=== PATIENT | female | born 1950 | race Caucasian/White ===

== ENCOUNTER 2022-09-07 10:44 | Inpatient (IN) | payer MEDICARE, BC ==
--- NOTE | 2022-09-07 12:28 | ED ---
General Adult HPI - General Chief complaint: Psychiatric Symptoms Stated complaint: mental health issues Time Seen by Provider: 09/07/22 11:59 Source: patient, family, RN notes reviewed, old records reviewed Mode of arrival: ambulatory Limitations: no limitations - History of Present Illness Initial comments: 72 yo female presenting for psychiatric evaluation. Patient has had increasing depression and thoughts of suicide over the past several months. She's been seen by her primary care physician. She's had medication adjustments. She had spoken with her counselor or therapist yesterday. She denies suicide attempt. Denies physical complaint. - Related Data Allergies Allergy/AdvReac Type Severity Reaction Status Date / Time codeine AdvReac Nausea & Verified 09/07/22 14:35 Vomiting Review of Systems ROS Statement: Those systems with pertinent positive or pertinent negative responses have been documented in the HPI. ROS Other: All systems not noted in ROS Statement are negative. Past Medical History Past Medical History: No Reported History History of Any Multi-Drug Resistant Organisms: None Reported Past Surgical History: Section, Hysterectomy, Joint Replacement Additional Past Surgical History / Comment(s): rt knee, lt knee Past Psychological History: Anxiety, Depression Smoking Status: Former smoker Past Alcohol Use History: None Reported Past Drug Use History: None Reported General Exam Limitations: no limitations General appearance: alert, in no apparent distress Head exam: Present: atraumatic, normocephalic Eye exam: Present: normal appearance, PERRL ENT exam: Present: normal exam Neck exam: Present: normal inspection. Absent: tenderness, meningismus Respiratory exam: Present: normal lung sounds bilaterally. Absent: respiratory distress, wheezes Cardiovascular Exam: Present: regular rate, normal rhythm GI/Abdominal exam: Present: soft. Absent: distended, tenderness, guarding Extremities exam: Present: normal inspection, normal capillary refill. Absent: pedal edema Neurological exam: Present: alert, oriented X3, CN II-XII intact, motor sensory deficit Psychiatric exam: Present: depressed, suicidal ideation Skin exam: Present: warm, dry, intact. Absent: cyanosis Course Vital Signs 09/07/22 11:26 Temperature 98.6 F Pulse Rate 76 Respiratory 20 Rate Blood Pressure 117/79 O2 Sat by Pulse 95 Oximetry Medical Decision Making - Medical Decision Making Was pt. sent in by a medical professional or institution (, PA, INTERMODAL OWNER OPERATOR TRUCK DRIVER, urgent care, hospital, or group home...) When possible be specific @ -No Did you speak to anyone other than the patient for history (EMS, parent, family, police, friend...)? What history was obtained from this source @ -No Did you review nursing and triage notes (agree or disagree)? Why? @ -I reviewed and agree with nursing and triage notes Were old charts reviewed (outside hosp., previous admission, EMS record, old EKG, old radiological studies, urgent care reports/EKG's, group home records)? Report findings @ -No old charts were reviewed Differential Diagnosis (chest pain, altered mental status, abdominal pain women, abdominal pain men, vaginal bleeding, weakness, fever, dyspnea, syncope, h eadache, dizziness, GI bleed, back pain, seizure, CVA, palpatations, mental health, musculoskeletal)? @ -Differential Mental Health Depression, anxiety, bipolar, psychosis, schizophrenia, borderline personality, situational depression, adjustment disorder, behavioral disorder, brain tumor, malingering, substance abuse, encephalopathy, medication reaction, dementia, hypothyroidism, degenerative neurologic disorder, lupus.... This is not meant to be all-inclusive list EKG interpreted by me (3pts min.). @ -As above X-rays interpreted by me (1pt min.). @ -None done CT interpreted by me (1pt min.). @ -None done U/S interpreted by me (1pt. min.). @ -None done What testing was considered but not performed or refused? (CT, X-rays, U/S, labs)? Why? @ -None What meds were considered but not given or refused? Why? @ -None Did you discuss the management of the patient with other professionals (professionals i.e. , PA, INTERMODAL OWNER OPERATOR TRUCK DRIVER, lab, RT, psych nurse, vp digital marketing social media and crm, chief pharmacist, teacher, sanitation officer, major case detective)? Give summary @ -Is discussed with the EPS nurse Was smoking cessation discussed for >3mins.? @ -No Was critical care preformed (if so, how long)? @ -No Were there social determinants of health that impacted care today? How? (Homelessness, low income, unemployed, alcoholism, drug addiction, transportation, low edu. Level, literacy, decrease access to med. care, long term, rehab)? @ -No Was there de-escalation of care discussed even if they declined (Discuss DNR or withdrawal of care, Hospice)? DNR status @ -No What co-morbidities impacted this encounter? (DM, HTN, Smoking, COPD, CAD, Cancer, CVA, ARF, Chemo, Hep., AIDS, mental health diagnosis, sleep apnea, morbid obesity)? @ -None Was patient admitted / discharged? Hospital course, mention meds given and route, prescriptions, significant lab abnormalities, going to OR and other pertinent info. @ -Patient has been medically cleared and evaluated by EPS and will be admitted for further psychiatric evaluation and treatment Undiagnosed new problem with uncertain prognosis? @ -No Drug Therapy requiring intensive monitoring for toxicity (Heparin, Nitro, Insulin, Cardizem)? @ -No Were any procedures done? @ -No Diagnosis/symptom? @ -Depression and suicidal ideation Acute, or Chronic, or Acute on Chronic? @ -Acute Uncomplicated (without systemic symptoms) or Complicated (systemic symptoms)? @ -[Uncomplicated Side effects of treatment? @ -No Exacerbation, Progression, or Severe Exacerbation? @ -No Poses a threat to life or bodily function? How? (Chest pain, [place], [place], pneumonia, PE, COPD, DKA, ARF, appy, cholecystitis, CVA, Diverticulitis, Homicidal, Suicidal, threat to staff... and all critical care pts) @ -Risk of self-harm - Lab Data Lab Results 09/07/22 Range/Units 14:04 Urine Color Light Yellow Urine Appearance Clear (Clear) Urine pH 5.5 (5.0-8.0) Ur Specific [place] 1.008 (1.001-1.035) Urine Protein Negative (Negative) Urine Glucose (UA) Negative (Negative) Urine Ketones Negative (Negative) Urine Blood Negative (Negative) Urine Nitrite Negative (Negative) Urine Bilirubin Negative (Negative) Urine Urobilinogen <2.0 (<2.0) mg/dL Ur Leukocyte Esterase Negative (Negative) Disposition Clinical Impression: Depression, Suicidal ideation Disposition: ADMITTED IP TO THIS HOSP Condition: Stable Is patient prescribed a controlled substance at d/c from ED?: No Referrals: Silvestre Edwards MD [Primary Care Provider] - 1-2 days Time of Disposition: 14:42
[2022-09-07 14:24] LABS: Appearance,Urine Clear (Clear); Bilirubin,Urine Negative (Negative); Blood,Urine Negative (Negative); Color,Urine Light Yellow; Glucose,Urine (UA) Negative (Negative); Ketones,Urine Negative (Negative); Leukocyte Esterase,Urine Negative (Negative); Nitrite,Urine Negative (Negative); PH, Urine 5.5 (5.0-8.0); Protein,Urine Negative (Negative); Specific Gravity,Urine 1.008 (1.001-1.035); Urobilinogen,Urine <2.0 mg/dL (<2.0)
[2022-09-07 14:40] LABS: Amphetamine Screen,Urine Not Detected (NotDetected); Barbiturate Screen,Urine Not Detected (NotDetected); Benzodiazepines Screen,Urine Detected (NotDetected); Cocaine Screen,Urine Not Detected (NotDetected); Methadone Screen, Urine Not Detected (NotDetected); Opiate Screen,Urine Not Detected (NotDetected); Oxycodone Screen, Urine Not Detected (NotDetected); Phencyclidine Screen,Urine Not Detected (NotDetected); Tricyclic Antidepressant,Urine Not Detected (NotDetected); Urn Cannabinoid Scrn Not Detected (NotDetected)
[2022-09-07] MEDS ORDERED: MAG HYDROX/AL HYDROX/SIMETH 30 ML CUP PO PRN (17:15)
[2022-09-07] MEDS ORDERED: MAGNESIUM HYDROXIDE 2,400 MG/10 ML CUP PO PRN (17:15)
[2022-09-07] MEDS ORDERED: LORazepam 2 MG/ML INJ IM PRN (17:17)
[2022-09-07] MEDS: ATORVASTATIN 10 MG TAB PO SCH (20:28)
[2022-09-07] MEDS: LORazepam 1 MG TAB PO PRN (20:29)
[2022-09-07] MEDS: APIXABAN 5 MG TAB PO SCH (20:35)
[2022-09-08] MEDS: lisinopriL 20 MG TAB PO SCH (08:31)
[2022-09-08] MEDS: amLODIPine 5 MG TAB PO SCH (08:31)
[2022-09-08] MEDS: LORazepam 1 MG TAB PO PRN ×2 (08:31→16:04)
[2022-09-08] MEDS: METOPROLOL SUCCINATE (ER) 25 MG TAB.ER.24H PO SCH (08:32)
[2022-09-08] MEDS: ESCITALOPRAM 10 MG TAB PO SCH (08:32)
[2022-09-08] MEDS: APIXABAN 5 MG TAB PO SCH ×2 (08:32→19:59)
[2022-09-08 08:40] LABS: Basophils % (A) 0 %; Eosinophils % (A) 1 %; HCT 43.2 % (34.0-46.0); HGB 14.3 gm/dL (11.4-16.0); Lymphocytes # (A) 1.8 k/uL (1.0-4.8); Lymphocytes % (A) 23 %; MCH 29.1 pg (25.0-35.0); MCHC 33.1 g/dL (31.0-37.0); MCV 88.1 fL (80.0-100.0); Mean Platelet Volume 7.4; Monocytes # (A) 0.4 k/uL (0-1.0); Monocytes % (A) 5 %; Neutrophils # (A) 5.4 k/uL (1.3-7.7); Neutrophils % (A) 70 %; Platelet Count 363 k/uL (150-450); RDW 13.6 % (11.5-15.5); WBC 7.8 k/uL (3.8-10.6)
[2022-09-08] MEDS ORDERED: BREXPIPRAZOLE 3 MG PO SCH (09:00)
[2022-09-08] MEDS ORDERED: FLUoxetine HCL 20 MG CAP PO SCH (09:00)
[2022-09-08 09:01] LABS: ALT 23 U/L (4-34); AST 22 U/L (14-36); African American GFR (CKD) 69 (>60 ml/min/1.73 sqM); Alkaline Phosphatase 105 U/L (38-126); Anion Gap 11 mmol/L; Blood Urea Nitrogen 12 mg/dL (7-17); Calcium 9.9 mg/dL (8.4-10.2); Carbon Dioxide 25 mmol/L (22-30); Chloride 105 mmol/L (98-107); Glucose 119 mg/dL (74-99); Non-African American GFR(CKD) 60 (>60 ml/min/1.73 sqM); Potassium 4.2 mmol/L (3.5-5.1); Sodium 141 mmol/L (137-145); Total Bilirubin 0.8 mg/dL (0.2-1.3); Total Protein 6.8 g/dL (6.3-8.2)
[2022-09-08] MEDS ORDERED: buPROPion SR 100 MG TABLET.ER PO STA (10:37)
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
[2022-09-08 17:26] LABS: Chol/HDL Ratio 2.68 Ratio; LDL Cholesterol,Calculated 110.2 mg/dL (0.0-131.0)
[2022-09-08] MEDS: ATORVASTATIN 10 MG TAB PO SCH (19:59)
[2022-09-08] MEDS: traZODone HCL 50 MG TAB PO PRN (19:59)
--- NOTE | 2022-09-09 04:00 | P.MDCNMH ---
History of Present Illness H&P Date: 09/08/22 Chief Complaint: medical evaluation 72 year old female with afib on eliquis patient coming in for psych evaluation due to depression and suicidal ideation , deneis any visual or auditory hallucinations she also reports compliance with her meds for medical issues , she denies any chest pain palpitations, nausea , vomiting, chest pain , trouble breathing , cough denies tobacco smoking, illicit drugs or alcohol Review of Systems Pertinent positives as noted in HPI. All other systems were reviewed and are negative Past Medical History Past Medical History: No Reported History History of Any Multi-Drug Resistant Organisms: None Reported Past Surgical History: Section, Hysterectomy, Joint Replacement Additional Past Surgical History / Comment(s): rt knee, lt knee Past Psychological History: Anxiety, Depression Smoking Status: Never smoker Past Alcohol Use History: None Reported Past Drug Use History: None Reported Medications and Allergies Home Medications Medication Instructions Recorded Confirmed Type Apixaban [Eliquis] 5 mg PO BID 09/07/22 09/07/22 History Atorvastatin [Lipitor] 10 mg PO HS 09/07/22 09/07/22 History Brexpiprazole [Rexulti] 3 mg PO DAILY 09/07/22 09/07/22 History Escitalopram [Lexapro] 10 mg PO DAILY 09/07/22 09/07/22 History FLUoxetine HCL [PROzac] See Taper PO DAILY 09/07/22 09/07/22 History LORazepam [Ativan] 1 mg PO TID PRN 09/07/22 09/07/22 History Metoprolol Succinate (ER) [Toprol 25 mg PO DAILY 09/07/22 09/07/22 History Xl] amLODIPine [Norvasc] 5 mg PO DAILY 09/07/22 09/07/22 History lisinopriL 40 mg PO DAILY 09/07/22 09/07/22 History Allergies Allergy/AdvReac Type Severity Reaction Status Date / Time codeine AdvReac Nausea & Verified 09/07/22 14:35 Vomiting Physical Exam Vitals: Vital Signs Temp Pulse Resp BP 09/08/22 06:57 98 F 75 16 138/69 Constitutional: No acute distress, Eyes: Anicteric sclerae, moist conjunctiva, Pupils equal round reactive to light ENMT: NC/AT Oropharynx clear, no erythema, or exudates Neck: Supple, no masses, or JVD No carotid bruits No thyromegaly Lungs: Clear to auscultation Clear to percussion Normal respiratory effort, no accessory muscle use Cardiovascular: Heart regular in rate and rhythm, No murmurs, gallops, or rubs No peripheral edema Abdominal: Soft Nontender, no guarding, rebound or rigidity Abdomen moving with respiration Normoactive bowel sounds No hepatomegaly, No splenomegaly No palpable mass No abdominal wall hernia noted Skin: Normal temperature, tone, texture, turgor Extremities: No digital cyanosis No clubbing Pedal pulses intact and symmetrical Radial pulses intact and symmetrical No calf tenderness Psychiatric: Alert and oriented to person, place and time Neuro Muscles Strength 5/5 in all 4 extremities Sensation to light touch grossly present throughout Cranial nerves II-XII grossly intact Lymphatics: no palpable cervical or supraclavicular lymph nodes Cranial Nerve Examination - Cranial Nerves Cranial Nerve II- Optic: Intact Cranial Nerve III- Oculomotor: Intact Cranial Nerve IV- Trochlear: Intact Cranial Nerve V- Trigeminal: Intact Cranial Nerve - Abducens: Intact Cranial Nerve VII- Facial: Intact Cranial Nerve VIII- Auditory: Intact Cranial Nerve IX- Glossopharyngeal: Intact Cranial Nerve X- Vagus: Intact Cranial Nerve XI- Accessory: Intact Cranial Nerve XII- Hypoglossal: Intact Results CBC & Chem 7: 09/08/22 07:56 09/08/22 07:56 Labs: Abnormal Lab Results - Last 24 Hours (Table) 09/08/22 Range/Units 07:56 Glucose 119 H (74-99) mg/dL Cholesterol 207.00 H (0.00-200.00) mg/dL HDL Cholesterol 77.20 H (40.00-60.00) mg/dL Vitamin B12 2319.0 H (200.0-944.0) pg/mL Assessment and Plan Assessment: depression adn suicidal ideation management per psych afib on eliquis resume blood thinners resume metoprolol 100 mg po daily hypertension , CAD resume atorvastatin 10 mg po qhs amlodipine 5 mg po daily l;isinopril 40 mg po daily blood work reviewed CBC and renal function unremarkable thank you for this consultation
[2022-09-09] MEDS: METOPROLOL SUCCINATE (ER) 25 MG TAB.ER.24H PO SCH (07:46)
[2022-09-09] MEDS: buPROPion SR 150 MG TABLET.ER PO SCH (07:46)
[2022-09-09] MEDS: APIXABAN 5 MG TAB PO SCH ×2 (07:46→20:03)
[2022-09-09] MEDS: lisinopriL 20 MG TAB PO SCH (07:46)
[2022-09-09] MEDS: ESCITALOPRAM 10 MG TAB PO SCH (07:46)
[2022-09-09] MEDS: amLODIPine 5 MG TAB PO SCH (07:46)
[2022-09-09] MEDS: ACETAMINOPHEN TAB 325 MG TAB PO PRN ×2 (08:41→17:23)
--- NOTE | 2022-09-09 11:55 | P.PN ---
Progress Note - Text Progress Note Date: 09/09/22 Interval History: Patient was seen resting in bed and was directable and agreeable to speak with check writer salesperson in the office. She currently rates her depression 7 out of 10 in severity with 10 being very severe. She continues to report an overall low mood however states that she appears to have a little bit more energy today. She states that she has been engaging in individual and milieu activities and that this has been distracting her from experiencing any suicidal ideation. She continues to remain future and goal oriented. She expresses excitement with the prospect of going to [facility] [facility] upon discharge. She reports no auditory or visual hallucinations. She denies any paranoia or other delusions. She reports no medical issues or concerns to this provider and denies any chest pain, shortness of breath, palpitations, or any other problems at this time. She has been adherent with her medications and is not endorsing any significant side effects. Mental Status Exam: General Appearance: Patient appears to be stated age is alert, directable, and cooperative. Behavior: Patient is calmly seated without any agitated behavior. Speech: Patient's speech is fluent and nonpressured. Mood/Affect: Mood is improving mildly, affect is congruent and constricted. Suicidality/Homicidality: Patient denies having any suicidal or homicidal ideation intent or plan. Perceptions: Patient denies any visual hallucinations and denies any auditory hallucinations Though content/process: There is no evidence of any delusional thought content and thought process is linear and goal-directed. Memory and concentration: AOX3, grossly intact for the purposes of this session Judgment and insight: Improving mildly Vital Signs Temp 98.0 F 09/09/22 06:53 Pulse 91 09/09/22 07:48 Resp 20 09/09/22 07:48 BP 110/71 09/09/22 07:48 Pulse Ox 98 09/07/22 17:52 FiO2 Laboratory Results - Last 24 Hours 09/08/22 09/08/22 09/08/22 07:56 07:56 07:[address] Glu mg/dL 108 Hemoglobin A1c 5.4 Triglycerides 98.00 Cholesterol 207.00 H LDL Cholesterol, Calc 110.2 VLDL Cholesterol, Calc 19.60 HDL Cholesterol 77.20 H Cholesterol/HDL Ratio 2.68 Vitamin B12 2319.0 H Folate 9.30 Assessment Major depressive disorder, recurrent, severe Plan: -Patient continues to meet criteria for inpatient psychiatric admission for symptom stabilization and safety. Patient has signed adult voluntary form and medication consent and was placed in patient's chart. -Medications: Wellbutrin 150 mg by mouth daily for depression Lexapro 10 mg by mouth daily for depression Trazodone 50 mg daily at bedtime when necessary for insomnia -When necessary Ativa for agitation/aggression. -SW on board for discharge planning. Encouraged the patient to participate in milieu.
[2022-09-09] MEDS: traZODone HCL 50 MG TAB PO PRN (20:03)
[2022-09-09] MEDS: ATORVASTATIN 10 MG TAB PO SCH (20:03)
[2022-09-09] MEDS: LORazepam 1 MG TAB PO PRN (21:18)
[2022-09-10 06:20] VITALS: BP 130/82; PULSE 71; RESP 14; TEMP 97.1
[2022-09-10] MEDS: lisinopriL 20 MG TAB PO SCH (08:25)
[2022-09-10] MEDS: buPROPion SR 150 MG TABLET.ER PO SCH (08:25)
[2022-09-10] MEDS: METOPROLOL SUCCINATE (ER) 25 MG TAB.ER.24H PO SCH (08:25)
[2022-09-10] MEDS: amLODIPine 5 MG TAB PO SCH (08:26)
[2022-09-10] MEDS: APIXABAN 5 MG TAB PO SCH (08:26)
[2022-09-10] MEDS: ESCITALOPRAM 10 MG TAB PO SCH (08:26)
[2022-09-10] MEDS: ACETAMINOPHEN TAB 325 MG TAB PO PRN (08:36)
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
== END 2022-09-10 11:20 | disposition home or self-care (01) | DRG 885 ==
LOC: EC 10:44 → 3MHU 16:58
PROVIDERS: ADMIT Psychiatry & Neurology Psychiatry; ATTEND Psychiatry & Neurology Psychiatry
DX: F33.2 Major depressive disorder, recurrent severe without psychotic features (principal); R45.851 Suicidal ideations; I25.10 Atherosclerotic heart disease of native coronary artery without angina pectoris; G47.00 Insomnia, unspecified; I10 Essential (primary) hypertension; F41.9 Anxiety disorder, unspecified; F43.10 Post-traumatic stress disorder, unspecified; Z91.51 Personal history of suicidal behavior; Z87.891 Personal history of nicotine dependence; Z79.899 Other long term (current) drug therapy; Z71.89 Other specified counseling; Z62.810 Personal history of physical and sexual abuse in childhood; Z96.651 Presence of right artificial knee joint; Z88.5 Allergy status to narcotic agent; Z20.822 Contact with and (suspected) exposure to COVID-19; Z28.21 Immunization not carried out because of patient refusal
CPT/HCPCS: 80053; 80061; 80306; 81003; 82075; 82607; 82746; 83036; 84443; 85025; 87635; 99285

== ENCOUNTER → 2023-10-19 | Outpatient (CLI) | payer MEDICARE | END | disposition home or self-care (01) | LOC: LABPAT 14:31 | PROVIDERS: ATTEND Orthopaedic Surgery | DX: Z01.812 Encounter for preprocedural laboratory examination (principal) | CPT/HCPCS: 86850; 86900; 86901 ==

== ENCOUNTER 2023-10-24 10:52 | Observation (INO) | payer MEDICARE ==
[2023-10-19 08:58] VITALS: BMI 36.3
--- NOTE | 2023-10-23 12:16 | HP ---
HISTORY AND PHYSICAL Surgery is scheduled for 10/24/2023. Fiona Romero is a 73-year-old patient, seen with symptomatic left hip osteoarthritis. We discussed options regarding treatment. She elected to proceed with direct anterior left total hip arthroplasty. Consents obtained. Medical clearance by Dr. Edwards. Cardiac clearance by Dr. Quan. PAST MEDICAL HISTORY: Hypertension, hyperlipidemia, cardiovascular disease. PAST SURGICAL HISTORY: Knee arthroscopy, left total knee arthroplasty, hysterectomy, section. DAILY MEDICATIONS: 1. Ativan. 2. Atorvastatin. 3. Lisinopril. 4. Metoprolol. 5. Norvasc. ALLERGIES: Codeine. SOCIAL HISTORY: She denies tobacco use. PHYSICAL EVALUATION OF THE LEFT HIP: There is diffuse tenderness about the hip girdle, limited range of motion with severe pain. Positive hip impingement sign. Straight-leg raise negative. Distal neurovascular exam is intact. IMAGING STUDIES: Radiographs of the left hip revealed severe osteoarthritic changes. IMPRESSION: 1. Left hip osteoarthritis. 2. Hypertension. 3. Hyperlipidemia. PLAN: Direct anterior approach left total hip arthroplasty. The surgery is scheduled for 10/24/2023. MMODL / IJN: [id number] /
[~2023-10-24 10:52] MED LIST: MIDAZOLAM 2 MG/2 ML VIAL IV PRN; TRANEXAMIC 1,000 MG/100ML-NACL 1,000 MG in SALINE 1 100ML.BAG IVPB PRN
[2023-10-24] MEDS: ACETAMINOPHEN TAB 500 MG TAB PO PRN (11:42)
[2023-10-24] MEDS: MELOXICAM 7.5 MG TAB PO PRN (11:42)
[2023-10-24] MEDS: LACTATED RINGERS 1,000 ML IV SCH (11:43)
[2023-10-24] MEDS: MIDAZOLAM 2 MG/2 ML VIAL IVP ONE (11:45)
[2023-10-24] MEDS: DEXAMETHASONE SOD PHOSPHATE 4 MG/ML 1 ML VIAL IV ONE (11:57)
[2023-10-24] MEDS: ONDANSETRON 4 MG/2 ML VIAL IVP ONE (11:57)
[2023-10-24] MEDS ORDERED: KETAMINE HCL IN 0.9 % NACL 50 MG/5 ML SYRINGE ONE (12:38)
[2023-10-24] MEDS ORDERED: HYDROmorphone (PF) 1 MG/ML ONE (12:38)
[2023-10-24] MEDS ORDERED: diphenhydrAMINE 50 MG/ML 1 ML VIAL ONE (12:38)
[2023-10-24] MEDS ORDERED: MIDAZOLAM 2 MG/2 ML VIAL ONE (12:38)
[2023-10-24] MEDS ORDERED: TRANEXAMIC 1,000 MG/100ML-NACL PREMIX BAG ONE (12:38)
[2023-10-24] MEDS ORDERED: ROPIVACAINE 5 MG/ML 30 ML VIAL ONE (12:38)
[2023-10-24] MEDS ORDERED: PROPOFOL 10 MG/ML 20 ML VIAL IV ONE (12:38)
[2023-10-24] MEDS ORDERED: PHENYLEPHRINE-0.9% NACL SYG 1,000 MCG/10 ML SYRINGE ONE (12:38)
[2023-10-24] MEDS ORDERED: LIDOCAINE 1% INJ 10MG/ML (20 ML MDV) ONE (12:38)
[2023-10-24] MEDS: ceFAZolin 1,000 MG in SODIUM CHLORIDE 0.9% 1,000 ML IRRIGATION ONE (12:40)
[2023-10-24] MEDS: LACTATED RINGERS 1,000 ML IV ONE (13:56)
--- NOTE | 2023-10-24 14:29 | P.OP ---
Date of Procedure: 10/24/23 Preoperative Diagnosis: Left hip osteoarthritis Postoperative Diagnosis: Left hip osteoarthritis Procedure(s) Performed: Direct anterior left total hip arthroplasty Implants: 1. DePuy [place] 125 degree standard collared size 13 press-fit femoral stem 2. DePuy [place] 52 mm press-fit acetabular shell 3. DePuy [place] neutral polyethylene acetabular liner 36 mm ID 52 mm OD 4. Biolox delta ceramic femoral head +5 36 mm Anesthesia: regional (Erector spinae block), spinal Surgeon: Stevan Braga Panel Saw Operator #1: Connor Richardson Estimated Blood Loss (ml): 100 Pathology: none sent Condition: stable Disposition: PACU Indications for Procedure: 73-year-old patient seen with symptomatic left hip osteoarthritis. After having treatment options discussed, she elected to proceed with direct anterior left total hip arthroplasty. Operative Findings: See description of procedure Description of Procedure: The patient was taken to the operative suite. Patient underwent a spinal anesthetic by the department of anesthesia. Patient was then transferred to the [facility] table. Patient was given preoperative IV antibiotics and TXA. Both lower extremities were placed in standard leg spars. The hip was then prepped and draped in the normal sterile orthopedic fashion. A standard anterior incision was made beginning 3 cm lateral and 1 cm distal to the ASIS extending 10 cm. Dissection was then carried down through the subcutaneous soft tissues down to the fascia overlying the tensor fascia susan. An incision was now made through the fascia. Careful dissection was taken down exposing the tensor fascia susan muscle. A Cobra retractor was now placed along the medial femoral neck and a second one along the lateral femoral neck. The venous circumflex vessels were now identified, cauterized and clipped. We identified the anterior hip capsule. An incision was made through the hip capsule along the lateral border. I performed a partial anterior capsulectomy. Retractors were now placed around the femoral neck itself. A femoral neck cut was now made with a sagittal saw. It was completed with an osteotome at the lateral neck area. The femoral head was now removed without difficulty. The extremity was now rotated to 60 of external rotation. It was locked in position. Residual labrum was now debrided out. Serial reaming was performed of the acetabulum while Tj BUTCHER assisted holding an anterior retractor for exposure. Once we reached the appropriate size and a trial was position and fit nicely. The appropriate size was now chosen opened and made available. It was introduced into the acetabulum without difficulty. The C-arm/fluoroscopy was now brought into the operative field. We made sure we had a true AP pelvic view. We now under direct C- arm/fluoroscopy introduced into the acetabular component with appropriate version and inclination. I held the cup in appropriate position well Tj BUTCHER used a mallet to seat the acetabular component. I noted the component now to be well seated and stable. Acetabular cup introduce her was removed. The C-arm was pulled back. An appropriate liner was introduced and clicked into position. It was felt to be stable. At this point retractors were removed. The extremity was now placed into 140 external rotation with no traction. The leg was now dropped to the ground and adducted. Appropriate retractors were now positioned along the proximal femur. We also placed our femoral look into position. Additional capsular releasing was performed to gain access to the proximal femur. We now used a box osteotome. A canal finder was now utilized. Serial broaching was now performed with the assistance of Tj BUTCHER tapping the broaches down with a mallet while held the broach in appropriate rotation and position. This was done until we reached the appropriate size with good overall rotational stability. Appropriate calcar planing was performed. A trial head/neck was placed into position. The hip was now reduced. The C- arm/fluoroscopy was brought back into the operative field. I obtained an AP pelvis was demonstrated adequate leg length alignment. The trial components appeared adequately sized and positioned the C-arm/fluoroscopy was pulled back. Retractors were repositioned and the hip was dislocated. The leg was again taken down to the ground and adducted. Appropriate retractors were repositioned as well as the femoral hook. All trial components were removed. The femoral implant was opened along with the femoral head. The femoral implant was introduced on the appropriate handle into our pre-broached area. I held the component position well Tj BUTCHER used a mallet to seat the femoral component. The femoral component was now noted to be well seated and stable.. The femoral head was introduced with good positioning and fixation noted. Retractors were now removed. The hip was now reduced. There appeared be good positioning of the hip confirmed on intraoperative fluoroscopy. Spot films were obtained to document this. A second gram of TXA was given. Bipolar cautery had been utilized intermittently through the procedure for hemostasis. The wound was irrigated copiously with pulse lavage mechanical irrigation. The fascia was repaired with Vicryl suture. The subcutaneous soft tissues were repaired in layers with Vicryl suture. The skin was approximated with pernio/Dermabond. Sterile dressings were applied. Patient was then awakened, transferred to a bed and taken to recovery in stable condition. Tj BUTCHER assisted with the complex procedure.
[2023-10-24] MEDS ORDERED: HYDROcodone/APAP 5-325MG 1 EACH TAB PO PRN (14:30)
[2023-10-24] MEDS ORDERED: NALOXONE 0.4 MG/ML 1 ML VIAL IV PRN (14:30)
[2023-10-24] MEDS ORDERED: HYDROmorphone 0.5 MG/0.5 ML SYRINGE IVP PRN (14:30)
[2023-10-24] MEDS ORDERED: ONDANSETRON 4 MG/2 ML VIAL IVP PRN (14:30)
--- NOTE | 2023-10-24 14:50 | XR ---
EXAMINATION TYPE: XR Hip Limited LT, FL guidance operating room Intraoperative/procedural fluoroscopi c services were provided. Total fluoroscopy time is 12 seconds with a total of 2 submitted images to PACS. Please see the operative/procedural note for further details. DAP: 0.4235 Gycm2
[2023-10-24 15:15] LABS: HGB 10.3 gm/dL (11.4-16.0); MCH 29.8 pg (25.0-35.0); MCHC 32.1 g/dL (31.0-37.0); MCV 92.8 fL (80.0-100.0); Mean Platelet Volume 7.4; Platelet Count 295 k/uL (150-450); RBC 3.45 m/uL (3.80-5.40)
[2023-10-24] MEDS: fentaNYL (PF) 50 MCG/ML 2 ML AMP IV PRN (15:21)
--- NOTE | 2023-10-24 15:39 | P.ANPRN ---
Procedure Note - Anesthesia - Nerve Block Performed Left Garry Single Time Out Performed: Yes ([id number]) Date of Procedure: 10/24/23 Procedure Start Time: 11:49 Procedure Stop Time: 11:54 Location of Patient: PreOp Indication: Acute Post-Operative Pain, Requested by Surgeon Specifically requested for management of pain by DrEdin: Stevan Braga Sedation Type: Sedate with meaningful contact maintained Preparation: Sterile Prep Position: Supine Catheter: None Needle Types: Pajunk Needle Gauge: 21 Ultrasound used to visualize needle placement: Yes Ultrasound used to observe medication spread: Yes Injectate: 0.5% Ropivacaine (see comment for volume) (30cc) Blood Aspirated: No Pain Paresthesia on Injection Noted: No Resistance on Injection: Normal Image Stored and Saved: Yes Events: Uneventful and Well Tolerated
[2023-10-24] MEDS: HYDROmorphone 0.5 MG/0.5 ML SYRINGE IVP PRN (17:35)
[2023-10-24] MEDS: SODIUM CHLORIDE 0.9% 1,000 ML IV SCH (20:48)
[2023-10-24] MEDS: SENNOSIDES-DOCUSATE SODIUM 1 EACH TAB PO SCH (21:43)
[2023-10-24] MEDS: HYDROcodone/APAP 7.5-325MG 1 EACH TAB PO PRN (21:45)
--- NOTE | 2023-10-25 01:26 | P.CONS ---
History of Present Illness - Reason for Consult Consult date: 10/25/23 - History of Present Illness Patient is a 73-year-old female with a PMH of A-fib on Eliquis, hypertension, hyperlipidemia who was admitted for an elective left total hip replacement. The patient underwent the procedure earlier today and was seen postoperatively on the surgical unit. The patient reported excellent control of her pain at the time of interview, rated at a 1 out of 10. Patient notes she has gotten out of bed and has passed urine and flatus. She denied any additional complaints. She denied experiencing chest discomfort, shortness of breath, fever, chills, cough, nausea, vomiting, abdominal pain, diarrhea. She reports compliance with all her home medications. Reviewed the patient's laboratory evaluation with WBC count 11.0, hemoglobin 10.3, glucose 119, A1c 5.4, unremarkable UA UA with urine toxicology positive for benzodiazepines ED documentation reviewed and case discussed with ED provider. Review of systems: Pertinent positives and negatives as discussed in HPI, a complete review of sy stems was performed and all other systems are negative. Physical examination: Vital signs reviewed General: non toxic, no distress, appears at stated age, normal weight Derm: no unusual rashes/lesions, warm Head: atraumatic, normocephalic, symmetric Eyes: EOMI, no lid lag, anicteric sclera, pupils equal round reactive to light ENT: Nose and ears atraumatic Neck: No cervical lymphadenopathy, trachea midline, supple Mouth: no lip lesion, mucus membranes moist Cardiovascular: S1S2 reg, no murmur, positive dorsalis pedis pulse bilateral, no edema Lungs: CTA bilateral, no rhonchi, no rales, no accessory muscle use Abdominal: soft, nontender to palpation, no guarding Ext: muscle strength 5 out of 5 in all extremities grossly except left proximal lower extremity postsurgically, left anterior hip dressing clean and dry, no gross muscle atrophy, no contractures, Neuro: CN II-XI grossly intact, no gross focal neuro deficits Psych: Alert, oriented, appropriate affect Assessment: Chronic conditions: A-fib, hypertension, hyperlipidemia Status post left total hip replacement Plan: Resume patient's home lisinopril, Norvasc, Lipitor, and Toprol Defer resumption of Eliquis to primary surgery service We appreciate this opportunity to be involved in this patient's care. We will follow the patient with you. For any further questions, please not hesitate to contact the [facility] inpatient team. Past Medical History Past Medical History: Hyperlipidemia, Hypertension, Musculoskeletal Disorder, Osteoarthritis (OA), Renal Disease Additional Past Medical History / Comment(s): Current stiff neck, states had injection but did not help, then had lumbar epidural injection which helped. Degenerative Disc Disease, chronic back pain, sees Dr Subramanian. Palpitations. Varicose veins. Constipation. Stage 2 Kidney Disease. Urinary incontinence, wears pad or pullup. History of Any Multi-Drug Resistant Organisms: None Reported Past Surgical History: Section, Hysterectomy, Joint Replacement, Orthopedic Surgery Additional Past Surgical History / Comment(s): Right knee replacement, left knee arthroscopy, lumbar epidural injection. Past Anesthesia/Blood Transfusion Reactions: No Reported Reaction, Motion Sickness Past Psychological History: Anxiety, Depression Smoking Status: Never smoker Past Alcohol Use History: Rare Additional Past Alcohol Use History / Comment(s): Quit smoking at age 41. Alcohol use once a year. Past Drug Use History: None Reported - Past Family History Mother Family Medical History: Cancer Additional Family Medical History / Comment(s): Small cell lung cancer. Father Family Medical History: Cancer Additional Family Medical History / Comment(s): Prostate and bone cancer. Medications and Allergies Home Medications Medication Instructions Recorded Confirmed Type Apixaban [Eliquis] 5 mg PO BID 09/07/22 10/24/23 History Atorvastatin [Lipitor] 10 mg PO HS 09/07/22 10/24/23 History Metoprolol Succinate (ER) [Toprol 25 mg PO QAM 09/07/22 10/24/23 History XL] lisinopriL 40 mg PO QAM 09/07/22 10/24/23 History DULoxetine HCL [Cymbalta] 120 mg PO QAM 10/19/23 10/24/23 History Docusate [Colace] 100 - 300 mg PO DAILY PRN 10/19/23 10/24/23 History HYDROcodone/APAP 10-325MG [[place] 1 tab PO TID PRN 10/19/23 10/24/23 History 10-325] LORazepam [Ativan] 1 mg PO TID PRN 10/19/23 10/24/23 History amLODIPine [Norvasc] 2.5 mg PO HS 10/19/23 10/24/23 History buPROPion XL [Wellbutrin XL] 150 mg PO QAM 10/19/23 10/24/23 History buPROPion XL [Wellbutrin XL] 300 mg PO QAM 10/19/23 10/24/23 History Allergies Allergy/AdvReac Type Severity Reaction Status Date / Time codeine AdvReac Nausea & Verified 10/24/23 11:11 Vomiting Physical Exam Vitals: Vital Signs Temp Pulse Resp BP Pulse Ox 10/24/23 19:51 98.3 F 81 16 119/73 98 10/24/23 19:10 73 14 110/60 10/24/23 18:40 70 14 112/62 99 10/24/23 18:09 76 14 109/64 99 10/24/23 17:40 70 14 118/59 100 10/24/23 17:10 71 14 138/70 100 10/24/23 16:40 75 14 114/55 100 10/24/23 16:25 68 14 113/57 99 10/24/23 16:11 67 14 118/61 100 10/24/23 15:57 71 14 121/64 100 10/24/23 15:42 70 14 110/59 99 10/24/23 15:27 66 14 112/65 95 10/24/23 15:12 69 14 108/75 94 L 10/24/23 14:54 97.1 F L 72 14 99/53 95 10/24/23 11:55 67 14 127/71 99 10/24/23 11:18 98.4 F 96 20 147/68 95 Intake and Output 10/24/23 10/24/23 10/25/23 14:59 22:59 06:59 Intake Total 2050 740 Output Total 100 Balance 1950 740 Intake: IV 2050 200 Oral 540 Output: Estimated Blood Loss 100 Other: Voiding Method Bedside Commode Weight 91.7 kg 91.7 kg Results CBC & Chem 7: 10/24/23 15:05 Labs: Abnormal Lab Results - Last 24 Hours (Table) 10/24/23 Range/Units 15:05 WBC 11.0 H (3.8-10.6) k/uL RBC 3.45 L (3.80-5.40) m/uL Hgb 10.3 L (11.4-16.0) gm/dL Hct 32.0 L (34.0-46.0) %
[2023-10-25] MEDS: ATORVASTATIN 10 MG TAB PO SCH (02:14)
[2023-10-25] MEDS: amLODIPine 2.5 MG TAB PO SCH (02:14)
[2023-10-25 08:35] LABS: Basophils # (A) 0.01 X 10*3/uL (0.00-0.10); Basophils % (A) 0.1 %; Eosinophils # (A) 0 X 10*3/uL (0.04-0.35); Eosinophils % (A) 0 %; HCT 25.1 % (37.2-46.3); HGB 8.1 g/dL (12.0-15.0); Lymphocytes # (A) 1.37 X 10*3/uL (0.90-5.00); Lymphocytes % (A) 16.7 %; MCH 30.3 pg (27.0-32.0); MCHC 32.3 g/dL (32.0-37.0); Mean Platelet Volume 10.1 FL (9.5-12.2); Monocytes # (A) 0.74 X 10*3/uL (0.20-1.00); NRBC Per 100 WBC 0 X 10*3/uL (0.00-0.01); Neutrophils # (A) 6.07 X 10*3/uL (1.80-7.70); Neutrophils % (A) 73.8 %; Platelet Count 232 X 10*3/uL (140-440); RBC 2.67 X 10*6/uL (4.10-5.20); RDW 13.1 % (11.5-14.5); WBC 8.22 X 10*3/uL (4.50-10.00)
[2023-10-25] MEDS: HYDROmorphone 0.5 MG/0.5 ML SYRINGE IVP PRN (08:57)
[2023-10-25] MEDS: METOPROLOL SUCCINATE (ER) 25 MG TAB.ER.24H PO SCH (08:57)
[2023-10-25] MEDS: FAMOTIDINE 20 MG TAB PO SCH (08:57)
[2023-10-25] MEDS: lisinopriL 20 MG TAB PO SCH (08:57)
[2023-10-25] MEDS: buPROPion XL 300 MG TAB.ER.24H PO SCH (12:18)
[2023-10-25] MEDS: MULTIVITAMINS, THERA 1 EACH TAB PO SCH (12:18)
[2023-10-25] MEDS: buPROPion XL 150 MG TAB.ER.24H PO SCH (12:18)
[2023-10-25] MEDS: DULoxetine HCL 60 MG CAPSULE.DR PO SCH (12:18)
[2023-10-25] MEDS: LORazepam 1 MG TAB PO PRN (12:37)
--- NOTE | 2023-10-25 13:20 | P.PN ---
Subjective Progress Note Date: 10/25/23 Principal diagnosis: status post direct anterior left total hip arthroplasty patient was evaluated today at bedside, she is resting comfortably. Patient's was also present today. Patient did well with physical therapy, she did get a little bit lightheaded but this did improve when resting. Her pain is well-controlled. She is urinating with no difficulties. Patient's hemoglobin was noted to be decreased down to 8 compared to 12 yesterday. Patient's hematocrit was also noted to be at 25. Currently has no headaches, lightheadedness, chest pain or shortness of breath. Objective - Vital Signs Vital signs: Vital Signs Temp 98.1 F 10/25/23 07:40 Pulse 80 10/25/23 07:40 Resp 16 10/25/23 07:40 BP 132/70 10/25/23 07:40 Pulse Ox 94 L 10/25/23 07:40 FiO2 Intake & Output 10/24/23 10/25/23 10/25/23 18:59 06:59 18:59 Intake Total 2251 540 350 Output Total 100 Balance 2151 540 350 Weight 91.7 kg 91.7 kg Intake: IV 2251 Oral 540 350 Output: Estimated Blood Loss 100 Other: Voiding Method Bedside Commode Bedside Commode # Voids 2 3 - Exam Left lower extremity: Incision is clean, dry, and intact. The foam dressing is in good condition. There is minimal soft tissue swelling and ecchymosis surrounding the medial and lateral aspects of the incision. Calf is soft, no tenderness with palpation. Plantar flexion, dorsiflexion, EHL, FHL are intact. Sensory exam to light touch throughout the extremity is intact, dorsal pedis pulses 2+. - Labs CBC & Chem 7: 10/25/23 04:03 Labs: Abnormal Lab Results - Last 24 Hours (Table) 10/24/23 10/25/23 Range/Units 15:05 04:03 WBC 11.0 H (3.8-10.6) k/uL RBC 3.45 L 2.67 L (3.80-5.40) m/uL Hgb 10.3 L 8.1 L (11.4-16.0) gm/dL Hct 32.0 L 25.1 L (34.0-46.0) % Eosinophils # 0 L (0.04-0.35) X 10*3/uL Assessment and Plan Assessment: postoperative day #1 status post direct anterior left total hip arthroplasty acute blood loss anemia, expected surgical outcome other medical comorbidities Plan: pain control, I did reorder patient's [place] 10 mg / 325 mg that she normally takes at home. Continue scheduled stool softeners DVT prophylaxis, patient has been started back on Eliquis 5 mg twice a day wound care, continue monitor surgical dressing, okay to leave dressing in place at this time 1 unit of packed RBCs has been ordered for symptomatic anemia continue PT/OT encourage incentive spirometer other medical specialty recommendations appreciated discharge planning: Would like to keep patient in hospital for additional day to monitor hemoglobin, hopeful discharge to home with home health care on 10/26/2023 Time with Patient: Less than 30
[2023-10-25] MEDS ORDERED: bisacodyL 10 MG SUPP RECTAL PRN (17:07)
[2023-10-25] MEDS: HYDROcodone/APAP 10-325MG 1 EACH TAB PO PRN (17:29)
[2023-10-25] MEDS: FERROUS SULFATE 325 MG TAB PO SCH (17:29)
[2023-10-25] MEDS: APIXABAN 5 MG TAB PO SCH (21:07)
[2023-10-26 07:53] VITALS: BP 119/74; PULSE 79; RESP 16; TEMP 98.6
[2023-10-26] MEDS: polyethylene glycoL 3350 17 GM POWD.PACK PO SCH (08:39)
--- NOTE | 2023-10-26 11:27 | P.PN ---
Subjective Progress Note Date: 10/26/23 Principal diagnosis: status post direct anterior left total hip arthroplasty patient was evaluated today at bedside, she is resting comfortably. Patient continues to progress very well with working with physical therapy. Waiting for redraw on her CBC, she did receive 1 unit of packed RBCs yesterday. Currently has no headaches, lightheadedness, chest pain or shortness of breath. Objective - Vital Signs Vital signs: Vital Signs Temp 98.6 F 10/26/23 07:15 Pulse 79 10/26/23 08:41 Resp 16 10/26/23 08:41 BP 119/74 10/26/23 07:15 Pulse Ox 96 10/26/23 07:15 FiO2 Intake & Output 10/25/23 10/26/23 10/26/23 18:59 06:59 18:59 Intake Total 810 Balance 810 Intake: Oral 500 Blood Product 310 Rc As-1 Unit 310 [id number] Other: Voiding Method Bedside Commode Toilet Toilet # Voids 4 2 # Bowel Movements 1 - Exam Left lower extremity: Incision is clean, dry, and intact. The foam dressing is in good condition. There is minimal soft tissue swelling and ecchymosis surrounding the medial and lateral aspects of the incision. Calf is soft, no tenderness with palpation. P lantar flexion, dorsiflexion, EHL, FHL are intact. Sensory exam to light touch throughout the extremity is intact, dorsal pedis pulses 2+. - Labs CBC & Chem 7: 10/25/23 04:03 Labs: Abnormal Lab Results - Last 24 Hours (Table) 10/25/23 Range/Units 12:37 Crossmatch See Detail Assessment and Plan Assessment: postoperative day #2 status post direct anterior left total hip arthroplasty acute blood loss anemia, expected surgical outcome other medical comorbidities Plan: pain control, plan to resume [place] 10 mg / 325 mg after discharge to home DVT prophylaxis, patient has been started back on Eliquis 5 mg twice a day wound care, continue monitor surgical dressing, okay to leave dressing in place at this time Awaiting CBC results from 10/26/2023 continue PT/OT encourage incentive spirometer other medical specialty recommendations appreciated discharge planning: Pending CBC results, hopeful discharge to home today Time with Patient: Less than 30
--- NOTE | 2023-10-26 12:40 | P.HPOR ---
History of Present Illness H&P Date: 10/26/23 Chief Complaint: Left hip osteoarthritis Patient is a 73-year-old female who had been evaluated in the outpatient setting by Dr. Braga on 08/23/2023 with regards to left hip pain. Patient has been dealing with worsening pain involving the left hip over the past 4 years. She has failed all conservative measures, this to include home exercise program, activity level modification and oral Tylenol multiple times per day. Patient is continue to decrease her activities of daily living due to the pain. She does utilize a cane for ambulation. It was determined best option for treatment would be a direct anterior left total hip arthroplasty. Review of Systems Constitutional: Reports as per HPI Past Medical History Past Medical History: Hyperlipidemia, Hypertension, Musculoskeletal Disorder, Osteoarthritis (OA), Renal Disease Additional Past Medical History / Comment(s): Current stiff neck, states had injection but did not help, then had lumbar epidural injection which helped. Degenerative Disc Disease, chronic back pain, sees Dr Subramanian. Palpitations. [place] icose veins. Constipation. Stage 2 Kidney Disease. Urinary incontinence, wears pad or pullup. History of Any Multi-Drug Resistant Organisms: None Reported Past Surgical History: Section, Hysterectomy, Joint Replacement, Orthopedic Surgery Additional Past Surgical History / Comment(s): Right knee replacement, left knee arthroscopy, lumbar epidural injection. Past Anesthesia/Blood Transfusion Reactions: No Reported Reaction, Motion Sickness Past Psychological History: Anxiety, Depression Smoking Status: Never smoker Past Alcohol Use History: Rare Additional Past Alcohol Use History / Comment(s): Quit smoking at age 41. Alcohol use once a year. Past Drug Use History: None Reported - Past Family History Mother Family Medical History: Cancer Additional Family Medical History / Comment(s): Small cell lung cancer. Father Family Medical History: Cancer Additional Family Medical History / Comment(s): Prostate and bone cancer. Medications and Allergies Home Medications Medication Instructions Recorded Confirmed Type Apixaban [Eliquis] 5 mg PO BID 09/07/22 10/24/23 History Atorvastatin [Lipitor] 10 mg PO HS 09/07/22 10/24/23 History Metoprolol Succinate (ER) [Toprol 25 mg PO QAM 09/07/22 10/24/23 History XL] lisinopriL 40 mg PO QAM 09/07/22 10/24/23 History DULoxetine HCL [Cymbalta] 120 mg PO QAM 10/19/23 10/24/23 History Docusate [Colace] 100 - 300 mg PO DAILY PRN 10/19/23 10/24/23 History HYDROcodone/APAP 10-325MG [[place] 1 tab PO TID PRN 10/19/23 10/24/23 History 10-325] LORazepam [Ativan] 1 mg PO TID PRN 10/19/23 10/24/23 History amLODIPine [Norvasc] 2.5 mg PO HS 10/19/23 10/24/23 History buPROPion XL [Wellbutrin XL] 150 mg PO QAM 10/19/23 10/24/23 History buPROPion XL [Wellbutrin XL] 300 mg PO QAM 10/19/23 10/24/23 History Ferrous Sulfate [Iron (65 MG 325 mg PO BID #60 tab 10/26/23 Rx Elemental)] Allergies Allergy/AdvReac Type Severity Reaction Status Date / Time codeine AdvReac Nausea & Verified 10/24/23 11:11 Vomiting Physical Examination Left lower extremity: No obvious open lesions, sores, areas of erythema present throughout the extremity Patient demonstrates no significant tenderness with palpation surrounding the knee, lower leg, foot or ankle Range of motion with regards to the hip is very limited, this does reproduce severe pain with hip flexion along with internal and external rotation. Flexion and extension are intact at the knee, plantarflexion, dorsiflexion, EHL, FHL are intact Strength with regards to hip flexion notable weakness appreciated, likely due to pain Sensory exam to light touch is intact throughout the extremity Calf is soft, no tenderness with palpation Dorsalis pedis pulses 2+ Results - Labs Labs: Abnormal Lab Results - Last 24 Hours (Table) 10/25/23 Range/Units 12:37 Crossmatch See Detail H & H 10/24/23 10/25/23 Range/Units 15:05 04:03 Hgb 10.3 L 8.1 L (11.4-16.0) gm/dL Hct 32.0 L 25.1 L (34.0-46.0) % Result Diagrams: 10/25/23 04:03 - Diagnostic results Hip x-ray: report reviewed, image reviewed (Most recent x-rays were reviewed from 08/23/2023 that were taken in the outpatient setting. Images included AP pelvis along with right and left hip x-rays. Images demonstrated bilateral hip severe osteoarthritic changes, this to include loss of joint space and [place] bacromial sclerosis) Assessment and Plan Assessment: Left hip osteoarthritis Plan: Treatment options were discussed with the patient in the outpatient setting with Dr. Braga. Direct anterior total hip arthroplasty of the left hip was determined to be the best option for treatment. Risk and benefits of the procedure were discussed, this to include blood loss, neurovascular injury, infection, development of blood clots, and adequate resolution of symptoms, pain and stiffness, need for possible further surgery. Patient is in good understanding and wanted to proceed. Consent was obtained. Patient was scheduled for a direct anterior left total hip arthroplasty for 10/24/2023 Patient did follow through with all preoperative testing and joint class Patient plans to stay at least 1 night in the hospital with hope for discharge to home with home health care Patient will be followed in the hospital by our orthopedic staff Patient will be scheduled for follow-up in the outpatient setting after his procedure
--- NOTE | 2023-10-26 13:19 | P.PN ---
Subjective Progress Note Date: 10/26/23 No new complaints. Pt is medically cleared for discharge. Gen: In NAD, non-toxic HEENT: normocephalic, atraumatic, hearing acuity is intant, mucous membranes moist CVS: perfusing all extremities well, no pitting edema, Respiratory: symmetric chest expansion, no accessory muscle use, GI: soft, NTTP, ND, : no suprapubic tenderness, no CVA tenderness MSK/Derm: no rashes, cyanosis Neuro: CN II-XII intact, no motor weakness, Psych: cooperative, euthymic mood, judgment and insight is intact Hospital Course: Patient is a 73-year-old female with a PMH of A-fib on Eliquis, hypertension, hyperlipidemia who was admitted for an elective left total hip replacement. Reviewed the patient's laboratory evaluation with WBC count 11.0, hemoglobin 10.3, glucose 119, A1c 5.4, unremarkable UA UA with urine toxicology positive for benzodiazepines Assessment: Chronic conditions: A-fib, hypertension, hyperlipidemia Status post left total hip replacement Plan: Resume patient's home lisinopril, Norvasc, Lipitor, and Toprol Resume Eliquis We appreciate this opportunity to be involved in this patient's care. We will follow the patient with you. For any further questions, please not hesitate to contact the [facility] team. Objective - Vital Signs Vital signs: Vital Signs Temp 98.6 F 10/26/23 07:15 Pulse 79 10/26/23 08:41 Resp 16 10/26/23 08:41 BP 119/74 10/26/23 07:15 Pulse Ox 96 10/26/23 07:15 FiO2 Intake & Output 10/25/23 10/26/23 10/26/23 18:59 06:59 18:59 Intake Total 810 Balance 810 Intake: Oral 500 Blood Product 310 Rc As-1 Unit 310 [id number] Other: Voiding Method Bedside Commode Toilet Toilet # Voids 4 2 # Bowel Movements 1 - Labs CBC & Chem 7: 10/25/23 04:03 Labs: Abnormal Lab Results - Last 24 Hours (Table) 10/25/23 Range/Units 12:37 Crossmatch See Detail
--- NOTE | 2023-10-26 13:24 | P.DS ---
Providers Date of admission: 10/25/23 11:14 Expected date of discharge: 10/26/23 Attending physician: Stevan Braga Consults: 10/24/23 14:30 Consult Physician Routine Consulting Provider: Chuck Gallagher Consult Reason/Comments: Medical management Do you want consulting provider notified?: Yes Primary care physician: Silvestre Saldana [facility] Course: Date of admission: 10/24/2023 Date of discharge: 10/26/2023 Admission diagnosis: Status post direct anterior left total hip arthroplasty Discharge diagnosis: Status post direct anterior left total hip arthroplasty, acute blood loss anemia Attending physician: Dr. Braga Surgical procedures: Direct anterior left total hip arthroplasty Brief history: Patient is a 73-year-old female with a history of progressive primary left hip osteoarthritis. At this point patient has failed conservative treatment measures and has opted to proceed with a elective direct anterior left total hip arthroplasty. Hospital course: Details of patient's surgery can be found in operative report. Patient tolerated the procedure well and was subsequently transported to orthopedic floor. Patient's orthopeidc and medical care was provided daily. Patient had daily laboratory tests performed for evaluation of overall blood counts. Patient had daily physical therapy to include strengthening range of motion as well as education with walker ambulation. Patient was treated with Eliquis for their postoperative DVT prophylaxis during their inpatient stay. Patient was noted to have a relatively uneventful postoperative course. Patient reported satisfactory pain control with oral pain medications by postoperative day 0. Patient showed satisfactory progress with physical therapy. Patient moved steadily through the program and had no difficulty meeting the goals by postoperative day 2. Given patient's otherwise satisfactory course and having met physical therapy goals, plan is to discharge patient on postoperative day 2. Discharge condition/disposition: Patient will be discharged home in stable condition. Discharge medications: Instructions are given on resumption of patient's normal daily medications per primary care recommendation, in addition patient will be prescribed ferrous sulfate 325 mg. Discharge instructions: 1. Wound care and infection precautions, keep incision dry and covered while showering, no lotions, creams, moisturizers. No soaking, tubs, pools, hottubs. Do not scrub over the incision. 2. Weight-bear as tolerated with walker / cane until follow-up. 3. Ice and elevate when necessary. Do not exceed 20 minutes per hour with ice pack. 4. Utilize compression sleeve until seen at first follow up appointment. 5. Visiting nursing care. 6. Home physical therapy. 7. Pain meds and anticoagulants per prescription. 8. Pain medication has potential to cause constipation. Increase oral fluid and fiber intake. Contact primary care provider if you have not had a bowel movement within 48 hours after discharge 9. No anti-inflammatory medication until discussed at first post operative visit, this including Motrin, Aleve, Mobic, Diclofenac. 10. Follow up in office at 2 weeks postop with Tj Richardson PA-C/Luis A Davison 11. Follow up with your primary care doctor 7-10 days after discharge. 12. Contact [facility] with any questions, . Procedures: Direct anterior left total hip arthroplasty Plan - Discharge Summary Discharge Rx Participant: Yes New Discharge Prescriptions: New Ferrous Sulfate [Iron (65 MG Elemental)] 325 mg PO BID #60 tab No Action lisinopriL 40 mg PO QAM buPROPion XL [Wellbutrin XL] 300 mg PO QAM HYDROcodone/APAP 10-325MG [Horner 10-325] 1 tab PO TID PRN PRN Reason: Pain DULoxetine HCL [Cymbalta] 120 mg PO QAM Metoprolol Succinate (ER) [Toprol XL] 25 mg PO QAM Atorvastatin [Lipitor] 10 mg PO HS Apixaban [Eliquis] 5 mg PO BID amLODIPine [Norvasc] 2.5 mg PO HS buPROPion XL [Wellbutrin XL] 150 mg PO QAM LORazepam [Ativan] 1 mg PO TID PRN PRN Reason: Anxiety Docusate [Colace] 100 - 300 mg PO DAILY PRN PRN Reason: Constipation Discharge Medication List Apixaban [Eliquis] 5 mg PO BID 09/07/22 [History] Atorvastatin [Lipitor] 10 mg PO HS 09/07/22 [History] Metoprolol Succinate (ER) [Toprol XL] 25 mg PO QAM 09/07/22 [History] lisinopriL 40 mg PO QAM 09/07/22 [History] DULoxetine HCL [Cymbalta] 120 mg PO QAM 10/19/23 [History] Docusate [Colace] 100 - 300 mg PO DAILY PRN 10/19/23 [History] HYDROcodone/APAP 10-325MG [Horner 10-325] 1 tab PO TID PRN 10/19/23 [History] LORazepam [Ativan] 1 mg PO TID PRN 10/19/23 [History] amLODIPine [Norvasc] 2.5 mg PO HS 10/19/23 [History] buPROPion XL [Wellbutrin XL] 150 mg PO QAM 10/19/23 [History] buPROPion XL [Wellbutrin XL] 300 mg PO QAM 10/19/23 [History] Ferrous Sulfate [Iron (65 MG Elemental)] 325 mg PO BID #60 tab 10/26/23 [Rx] Follow up Appointment(s)/Referral(s): [facility], [NON-STAFF] - As Needed Connor Richardson, PAC [PHYSICIAN ASSISTANT ASSOCIATE PROFESSOR] - 11/08/23 10:20 am Patient Instructions/Handouts: Anterior Hip Replacement (DC), Anterior Hip Replacement (GEN) Activity/Diet/Wound Care/Special Instructions: Orthopedic Discharge Instructions: 1. Wound care and infection precautions, keep incision dry and covered while showering, no lotions, creams, moisturizers. No soaking, pools, hot tubs. Do not scrub over incision. 2. Weight-bear as tolerated with walker / cane until follow-up. 3. Ice and elevate when necessary. Do not exceed 20 minutes per hour with ice pack. 4. Utilize compression sleeve until seen at first follow up appointment. 5. Pain meds and anticoagulants per prescription. 6. Pain medication has potential to cause constipation. Increase oral fluid and fiber intake. Contact primary care provider if you have not had a bowel movement within 48 hours after discharge. 7. No anti-inflammatory medication until discussed at first post operative visit, this including Motrin, Aleve, Mobic, Diclofenac. 8. Follow up in office at 2 weeks postop with Tj Richardson PA-C / Luis A Martinez PA-C 9. Follow up with your primary care doctor 7-10 days after discharge. 10. Contact [facility] with any questions, . Keep incision clean, dry, intact. While showering, cover dressing with Saran wrap. Keep dressing on until 10/31/2023. It is okay to take silver foam dressin g off on 10/31/2023. Once dressing is removed, it is okay to shower directly over incision Discharge Disposition: HOME WITH HOME HEALTH SERVICES
[2023-10-26 14:31] LABS: HCT 24.9 % (37.2-46.3); MCH 29.2 pg (27.0-32.0); MCHC 32.1 g/dL (32.0-37.0); MCV 90.9 FL (80.0-97.0); Mean Platelet Volume 9.8 FL (9.5-12.2); NRBC Per 100 WBC 0 X 10*3/uL (0.00-0.01); Platelet Count 200 X 10*3/uL (140-440); RBC 2.74 X 10*6/uL (4.10-5.20); RDW 14.6 % (11.5-14.5); WBC 7.23 X 10*3/uL (4.50-10.00)
== END 2023-10-26 15:41 | disposition home health service (06) ==
LOC: OR 10:52 → 4SSUR 14:54 → OR 10-25 11:14
PROVIDERS: ADMIT Orthopaedic Surgery; ATTEND Orthopaedic Surgery
DX: M16.12 Unilateral primary osteoarthritis, left hip (principal); D62 Acute posthemorrhagic anemia; I48.91 Unspecified atrial fibrillation; I12.9 Hypertensive chronic kidney disease with stage 1 through stage 4 chronic kidney disease, or unspecified chronic kidney disease; N18.2 Chronic kidney disease, stage 2 (mild); E78.5 Hyperlipidemia, unspecified; K21.9 Gastro-esophageal reflux disease without esophagitis; F32.A Depression, unspecified; F41.9 Anxiety disorder, unspecified; Z79.01 Long term (current) use of anticoagulants; Z79.899 Other long term (current) drug therapy; Z88.5 Allergy status to narcotic agent; Z87.891 Personal history of nicotine dependence
CPT/HCPCS: 97116; 97530; 97161; 64447; 86900; 86901; 85025; 85027 ×2; 86850; 86920; 73501; 27130; 36430; G0378 ×2; C1776; P9016; J2250; J1200; J1100; J0690 ×3; J2405; J2001; J3010; J1170 ×3; J2795; J2704; J2371

== ENCOUNTER → 2024-01-03 | Outpatient (CLI) | payer MEDICARE ==
--- NOTE | 2024-01-29 13:11 | XR ---
EXAMINATION TYPE: XR Hip Complete LT DATE OF EXAM: 01/03/2024 11:53 AM CLINICAL INDICATION: Female, 73 years old with history of M25.552 LEFT HIP PAIN; [facility] COMPARISON: Prior radiographs. TECHNIQUE: XR Hip Complete LT; hip was examined in the frontal and lateral projections and a AP pelvi s. FINDINGS: Post arthroplasty changes, hardware is intact, alignment is appropriate. No evidence of fra cture. No evidence of any acute osseous pathology or joint dislocation. IMPRESSION: Hip arthroplasty with hardware intact and in appropriate alignment. No acute fracture.
== END | disposition home or self-care (01) ==
LOC: RADXRMAIN 11:18
PROVIDERS: ATTEND Orthopaedic Surgery
DX: M25.552 Pain in left hip (principal); Z96.642 Presence of left artificial hip joint
CPT/HCPCS: 73502